=== PATIENT | male | born 1975 | race Caucasian/White ===

== ENCOUNTER 2016-09-30 08:34 | Emergency (ER) | payer OTHER ==
[2016-09-30 09:00] VITALS: BP 130/94; PULSE 65; RESP 16; TEMP 98.1; O2SAT 93
[2016-09-30 09:14] LABS: COLOR YELLOW; LEUKOCYTE ESTERASE,URINE NEGATIVE (NEGATIVE); NITRITE,URINE NEGATIVE (NEGATIVE)
[2016-09-30 10:11] LABS: % IMMATURE GRANULYOCYTES 0.2 % (0.0-1.1); ABSOLUTE IMMATURE GRANULOCYTES 0.01 10^3/uL (0.00-0.10); ADD DIFF? NO; ADD MORPH? NO; ADD SCAN? NO; ATYPICAL LYMPHOCYTE FLAG 0 (0-99); FRAGMENT RBC FLAG 0 (0-99); HEMATOCRIT 47.3 % (40.0-51.0); HEMOGLOBIN 16.8 g/dL (13.7-17.5); LEFT SHIFT FLG 0 (0-99); LIPEMIA HEMOLYSIS FLAG 90 (0-99); MEAN CELL HEMOGLOBIN 30.3 pg (27.9-34.1); MEAN CELL HEMOGLOBIN CONCENTR. 35.5 g/dL (32.4-36.7); MEAN CELL VOLUME 85.2 fL (81.5-99.8); MEAN PLATELET VOLUME 8.8 fL (8.7-11.7); PLATELET CLUMPS FLAG 10 (0-99); PLATELET COUNT 210 10^3/uL (150-400); RED BLOOD CELL COUNT 5.55 10^6/uL (4.40-6.38); RED CELL DISTRIBUTION WIDTH 11.9 % (11.5-15.2)
[2016-09-30 10:24] LABS: ANION GAP 14 mEq/L (8-16); CALCIUM 9.3 mg/dL (8.5-10.4); CARBON DIOXIDE 24 mEq/l (22-31); CHLORIDE 104 mEq/L (97-110); CREATININE 0.8 mg/dL (0.7-1.3); GLOMERULAR FILTRATION RATE > 60; GLUCOSE 95 mg/dL (70-100); POTASSIUM 4.5 mEq/L (3.5-5.2); SODIUM 142 mEq/L (134-144)
--- NOTE | 2016-09-30 10:55 | UCPHY ---
H & P Time Seen by Provider: 09/30/16 09:09 Patient Type: Established HPI/ROS: CHIEF COMPLAINT: Flank pain HPI: The patient is a 41-year-old male with no significant past medical history. He reports vague left flank pain over the last several days which became very severe overnight. The patient states that he had trouble finding a comfortable position. Pain was not worse with moving or walking. No vomiting. No change in bowel movement. No dysuria. No hematuria. No recent trauma. REVIEW OF SYSTEMS: Aside from elements discussed in the HPI, a comprehensive 10-point review of systems was reviewed and is negative. PMH: Hyperlipidemia, mild hypertension. SOCIAL HISTORY: Works a desk job. . FAMILY HISTORY: Reviewed, noncontributory PHYSICAL EXAM: General:Patient is alert, in no acute distress. ENT:Eyes are normal to inspection. ENT inspection normal. Neck: Normal inspection. Full range of motion. Respiratory:No respiratory distress. Breath sounds normal bilaterally. Cardiovascular: Regular rate and rhythm. Strong peripheral pulses. Normal cap refill. Abdomen:The abdomen is nontender to palpation. There are no peritoneal signs. There are normal bowel sounds. Back: Normal to inspection. Mild tenderness to palpation left CVA region. Skin: Normal color. No rash. Warm and dry. Extremities: Normal appearance. Full range of motion. Neuro: Oriented x3. Normal motor function. Normal sensory function. Smoking Status: Former smoker Constitutional: Initial Vital Signs Temperature (C) 36.7 C 09/30/16 08:53 Heart Rate 65 09/30/16 08:53 Respiratory Rate 16 09/30/16 08:53 Blood Pressure 130/94 H 09/30/16 08:53 O2 Sat (%) 93 09/30/16 08:53 O2 Delivery Mode Room Air Allergies/Adverse Reactions: No Known Allergies Allergy (Verified 09/30/16 09:02) Home Medications: Medication Instructions Recorded Lexapro 02/24/14 MDM/Departure - MDM Diagnostics: Imaging Impressions Abdomen/Pelvis CT 09/30/16 09:14 Impression: 1. There is no evidence of nephroureterolithiasis or obstructive uropathy. 2. Mild constipation. Rare sigmoid colon diverticulosis, without active diverticulitis. 3. Postoperative changes following a right inguinal herniorrhaphy, with no recurrent hernia. 4. Minimal LAD coronary artery atherosclerotic calcification. Attention: This CT examination is specifically designed to evaluate patients who are clinically suspected of having acute obstructive uropathy. This examination does not use radiographic contrast, and as such, provides only a limited evaluation of the abdomen, pelvis, and retroperitoneum. If there is further clinical suspicion for pathological conditions other than obstructive uropathy, a complete CT evaluation of the abdomen and pelvis utilizing intravenous, oral, and rectal contrast should be considered. Findings were discussed with Toney Snyder MD at 9:48 am, on 09/30/2016. ED Course/Re-evaluation: This patient presents with flank pain that sounded suspicious for kidney stone in nature, given no change with movement and difficulty finding a comfortable position. However, his workup is negative. His UA is negative and CT of the abdomen and pelvis does not show kidney stone or other significant abdominal pathology. Patient's blood work is normal. I see no evidence of bowel obstruction or bowel perforation. There is no evidence for diverticulitis or fracture. There is no evidence for AAA. Patient may be suffering from constipation or this may represent a low back strain. He is comfortable with the plan to go home and try laxatives and anti-inflammatory medications. If symptoms do not resolve, he understands that he is to return to the hospital for further testing. - Depart Disposition: Home, Routine, Self-Care Clinical Impression: Flank pain Condition: Good Instructions: Flank Pain (ED) Additional Instructions: Your CT scan reveals moderate constipation. Try taking some laxatives and/or an enema. You should have a large bowel movement which may relieve your symptoms. Take ibuprofen, 600 mg every 6 hours the next 24 hours. Try using a heating pad. If these interventions do not make it feel better, and certainly if you feel worse, return to the urgent care or emergency department for more aggressive testing. Return immediately for fever, severe pain, vomiting or other concerns. Referrals: Elizabeth Gutierrez MD [Primary Care Provider] - As per Instructions - PQRS PQRS Measurement: 134: Depression screening and followup, PRIME -PHQ2 (12 years and older) Over the last 2 weeks, how often have you been bothered by any of the following problems? 1. Feeling down, depressed, or hopeless? 2. Little interest or pleasure in doing things? Patient answered no to both 1 and 2 130: Documentation of medications. Reviewed all patient medications, doses, route and frequency. 226: Do you smoke? No. 51: 18 years old and older with diagnosis of COPD, spirometry performance. Spirometry not performed; equipment not available. Patient has no history of COPD 52: 18 years old and older with COPD and symptoms of COPD or FEV1<60% predicted prescribed a B Agonist. Spirometry not performed; equipment not available.
== END 2016-09-30 11:08 | disposition home or self-care (01) ==
LOC: CED 08:34
DX: R10.9 Unspecified abdominal pain (principal); K59.00 Constipation, unspecified; E78.5 Hyperlipidemia, unspecified; Z87.891 Personal history of nicotine dependence
CPT/HCPCS: 74176-PO; 80048-PO; 81003-PO; 85025-PO; G0463-PO